=== PATIENT | male | born 1945 | race Caucasian/White ===

== ENCOUNTER 2016-09-26 14:19 | Emergency (ER) | payer MEDICARE ==
--- NOTE | 2016-09-26 14:29 | EDM.PDOC ---
ED HPI GENERAL MEDICAL PROBLEM - General Chief Complaint: Cardiovascular Problem Stated Complaint: [id number] DIZZINESS LIGHT HEADED HEART RACING Time Seen by Provider: 09/26/16 14:27 Source of Information: Reports: Patient, Old Records, RN, RN Notes Reviewed History Limitations: Reports: No Limitations - History of Present Illness INITIAL COMMENTS - FREE TEXT/NARRATIVE: Arrives from home by POV with c/o lightheadedness and rapid HR that began while trying to hurry and remove the shingles from his roof. Pt states that he only got only about 4 hours of sleep that night before, and drank a lot more caffeine than usual when he woke up at 5AM. He began taking the roof off at 5: 30AM because the roofers had contacted him to say that they were going to start the new roof a day earlier than planned. Pt states that he continued to work hard through the heat of the day and did not stop to eat and did not drink very much water. He states he began to feel tired and had some generalized weakness, and just didn't feel well in general, so he took a break and drove into town to get some supplies. When he drove into town he felt his heart was going very fast and he felt lightheaded, so he drove straight to the hospital. He denies chest pain or radiating pain, nausea, or shortness of breath. Now at the ER, pt states he is starting to feel "back to normal". Onset: Today, Gradual Duration: Improving Location: Reports: Chest, Generalized Quality: Reports: Other (denies pain) Severity: Moderate Improves with: Reports: Rest Worsens with: Reports: None Context: Reports: Activity (pt suspects dehydration) Associated Symptoms: Reports: No Other Symptoms - Related Data Allergies Allergy/AdvReac Type Severity Reaction Status Date / Time No Known Allergies Allergy Verified 09/26/16 14:57 Home Meds: Home Meds Lansoprazole [Prevacid] 10 mg PO DAILY 09/26/16 [History] amLODIPine [Norvasc] 10 mg PO DAILY 09/26/16 [History] Past Medical History HEENT History: Reports: Impaired Vision (wears glasses) Cardiovascular History: Reports: Hypertension Gastrointestinal History: Reports: GERD Social & Family History - Family History Family Medical History: Noncontributory - Tobacco Use Smoking Status *Q: Never Smoker - Caffeine Use Caffeine Use: Reports: Coffee - Alcohol Use Alcohol Use History: Yes Alcohol Use Frequency: Rarely - Recreational Drug Use Recreational Drug Use: No - Living Situation & Occupation Living situation: Reports: , with Spouse Occupation: Retired ED ROS GENERAL - Review of Systems Review Of Systems: ROS reveals no pertinent complaints other than HPI. ED EXAM, GENERAL - Physical Exam Exam: See Below Exam Limited By: No Limitations General Appearance: Alert, WD/WN, No Apparent Distress Eye Exam: Bilateral Eye: EOMI, Normal Inspection, PERRL Ears: Hearing Grossly Normal Nose: Normal Inspection, Normal Mucosa, No Blood Throat/Mouth: Normal Lips, Normal Teeth, Normal Gums, Normal Oropharynx, Normal Voice, No Airway Compromise, Other (dry oral membranes) Head: Atraumatic, Normocephalic Neck: Normal Inspection, Supple, Non-Tender, Full Range of Motion Respiratory/Chest: No Respiratory Distress, Lungs Clear, Normal Breath Sounds, No Accessory Muscle Use, Chest Non-Tender Cardiovascular: Normal Peripheral Pulses, Regular Rate, Rhythm, No Edema, No Gallop, No JVD, No Murmur, No Rub, Tachycardia GI/Abdominal: Normal Bowel Sounds, Soft, Non-Tender, No Organomegaly, No Distention, No Abnormal Bruit, No Mass (Male) Exam: Deferred Rectal (Males) Exam: Deferred Back Exam: Normal Inspection, Full Range of Motion, NT Extremities: Normal Inspection, Normal Range of Motion, Non-Tender, Normal Capillary Refill, No Pedal Edema Neurological: Alert, Oriented, CN II-XII Intact, Normal Cognition, Normal Gait, No Motor/Sensory Deficits Psychiatric: Normal Affect, Normal Mood Skin Exam: Warm, Dry, Intact, Normal Color, No Rash EKG INTERPRETATION EKG Date: 09/26/16 Time: 14:24 Rhythm: A-Fib (with RVR vs SVT, spontaneously converted to SR rate 88) Rate (Beats/Min): 137 Sells: Normal P-Wave: Present QRS: Normal ST-T: Normal QT: Prolonged Course - Vital Signs Last Recorded V/S: Last Vital Signs Temp 37.3 C 09/26/16 14:53 Pulse 88 09/26/16 14:53 Resp 16 09/26/16 14:53 BP 136/79 09/26/16 14:53 Pulse Ox 100 09/26/16 14:53 - Orders/Labs/Meds Orders: Active Orders 24 hr Category Date Time Status EKG 12 Lead [EKG Documentation Completion] [RC] STAT Care 09/26/16 14:30 Active Peripheral IV Care [RC] . DIRECTED Care 09/26/16 14:30 Active Peripheral IV Insertion Adult [OM.PC] Stat Oth 09/26/16 14:29 Ordered Labs: Laboratory Tests 09/26/16 09/26/16 09/26/16 Range/Units 14:40 14:40 14:40 WBC 10.9 H (5.0-10.0) 10^3/uL RBC 4.46 L (4.6-6.2) 10^6/uL Hgb 14.7 (14.0-18.0) g/dL Hct 42.7 (40.0-54.0) % MCV 95.7 (80-100) fL MCH 33.0 (27.0-34.0) pg MCHC 34.4 (33.0-35.0) g/dL Plt Count 188 (150-450) 10^3/uL Neut % (Auto) 75.1 (42.2-75.2) % Lymph % (Auto) 14.6 L (20.5-50.1) % Preston % (Auto) 10.0 H (2-8) % Eos % (Auto) 0.2 L (1.0-3.0) % Baso % (Auto) 0.1 (0.0-1.0) % PT 10.0 (9.0-12.0) SEC INR 1.0 (0.9-1.2) APTT 26.9 (22.0-34.0) SEC Sodium 140 (135-145) mmol/L Potassium 4.1 (3.6-5.0) mmol/L Chloride 102 (101-111) mmol/L Carbon Dioxide 27.0 (21.0-31.0) mmol/L Anion Gap 15.1 BUN 24 H (7-18) mg/dL Creatinine 1.4 H (0.6-1.3) mg/dL Est Cr Clr Drug Dosing 53.04 mL/min Estimated GFR (MDRD) 50 BUN/Creatinine Ratio 17.14 Glucose 126 H (74-105) mg/dL Calcium 9.2 (8.4-10.2) mg/dl Magnesium 1.9 (1.8-2.5) mg/dL Total Bilirubin 0.8 (0.2-1.0) mg/dL AST 28 (10-42) IU/L ALT 15 (10-60) IU/L Alkaline Phosphatase 82 (42-121) IU/L Troponin I 0.02 (0.00-0.02) ng/ml Total Protein 7.0 (6.7-8.2) g/dl Albumin 4.3 (3.2-5.5) g/dl Globulin 2.7 Albumin/Globulin Ratio 1.59 TSH, Ultra Sensitive (0.35-7.0) uIu/mL 09/26/16 Range/Units 14:40 WBC (5.0-10.0) 10^3/uL RBC (4.6-6.2) 10^6/uL Hgb (14.0-18.0) g/dL Hct (40.0-54.0) % MCV (80-100) fL MCH (27.0-34.0) pg MCHC (33.0-35.0) g/dL Plt Count (150-450) 10^3/uL Neut % (Auto) (42.2-75.2) % Lymph % (Auto) (20.5-50.1) % Preston % (Auto) (2-8) % Eos % (Auto) (1.0-3.0) % Baso % (Auto) (0.0-1.0) % PT (9.0-12.0) SEC INR (0.9-1.2) APTT (22.0-34.0) SEC Sodium (135-145) mmol/L Potassium (3.6-5.0) mmol/L Chloride (101-111) mmol/L Carbon Dioxide (21.0-31.0) mmol/L Anion Gap BUN (7-18) mg/dL Creatinine (0.6-1.3) mg/dL Est Cr Clr Drug Dosing mL/min Estimated GFR (MDRD) BUN/Creatinine Ratio Glucose (74-105) mg/dL Calcium (8.4-10.2) mg/dl Magnesium (1.8-2.5) mg/dL Total Bilirubin (0.2-1.0) mg/dL AST (10-42) IU/L ALT (10-60) IU/L Alkaline Phosphatase (42-121) IU/L Troponin I (0.00-0.02) ng/ml Total Protein (6.7-8.2) g/dl Albumin (3.2-5.5) g/dl Globulin Albumin/Globulin Ratio TSH, Ultra Sensitive 2.12 (0.35-7.0) uIu/mL Meds: Medications Discontinued Medications Generic Name Dose Route Start Last Admin Trade Name Efren PRN Reason Stop Dose Admin Aspirin 324 mg 09/26/16 14:32 Aspirin PO 09/26/16 14:33 ONETIME ONE Sodium Chloride 10 ml 09/26/16 14:30 Saline Flush FLUSH ASDIRECTED PRN Keep Vein Open - Re-Assessments/Exams Free Text/Narrative Re-Assessment/Exam: Pt felt well after receiving NS 1 liter IVF bolus. I explained the exam findings , results of all diagnostic tests, working diagnosis, and any potential or additionally considered diagnoses, treatment/disposition plan, self/home care instructions, rational for the diagnosis/treatment plan/disposition plan, anticipated course of illness, and follow up instructions to the pt. The pt acknowledges understanding of the above explanation(s), and of the signs and symptoms which should prompt the return of the pt to the ER should those or any other concerning symptoms develop. Departure - Departure Time of Disposition: 16:31 Disposition: Home, Self-Care 01 Condition: Fair Clinical Impression: Dehydration, Tachycardia Instructions: Dehydration, Adult, [id number] Forms: ED Department Discharge Additional Instructions: Rest. Drink plenty of water. Follow up with your doctor in the net week for recheck. Return to ER if worse at any or any new symptoms develop. - My Orders Last 24 Hours: My Active Orders 09/26/16 14:29 Peripheral IV Insertion Adult [OM.PC] Stat 09/26/16 14:30 EKG 12 Lead [EKG Documentation Completion] [RC] STAT Peripheral IV Care [RC] . DIRECTED - Assessment/Plan Last 24 Hours: My Active Orders 09/26/16 14:29 Peripheral IV Insertion Adult [OM.PC] Stat 09/26/16 14:30 EKG 12 Lead [EKG Documentation Completion] [RC] STAT Peripheral IV Care [RC] . DIRECTED
[2016-09-26] MEDS ORDERED: Sodium Chloride 0.9% 10 ML Syringe FLUSH PRN (14:30)
[2016-09-26] MEDS ORDERED: Aspirin 81 MG Tab.Chew PO ONE (14:32)
[2016-09-26 14:54] VITALS: BP 136/79
--- NOTE | 2016-09-28 11:09 | EKG ---
09/26/2016- RJ BURGESS V - EKG per my reading shows narrow complex tachycardia likely atrial fibrillation and later sinus rhythm. [facility] /[id number]
== END 2016-09-26 16:40 | disposition home or self-care (01) ==
LOC: DL.ED 14:19
DX: R00.0 Tachycardia, unspecified (principal); E86.0 Dehydration; K21.9 Gastro-esophageal reflux disease without esophagitis; I10 Essential (primary) hypertension; Z79.899 Other long term (current) drug therapy
CPT/HCPCS: 36415; 80053; 83735; 84443; 84484; 85025; 85610; 85730; 93005; 93010; 99282; 99284